=== PATIENT | female | born 1950 | race Caucasian/White ===

== ENCOUNTER 2017-06-15 15:08 | Emergency (ER) | payer MEDICARE, SELFPAY ==
[2017-06-15 15:10] VITALS: BP 163/83; PULSE 88; RESP 16; TEMP 36.4; O2SAT 93; BMI 24.1
--- NOTE | 2017-06-15 15:30 | CT_ITS ---
STUDY: CT BRAIN WITHOUT CONTRAST REASON FOR EXAM: Female, 67 years old. Fall. History of prior brain tumor. RADIATION DOSAGE (If Supplied By Facility): CTDIvol = ( 44.99 ) mGy, DLP = ( 779.24 ) mGycm TECHNIQUE: Transaxial CT imaging of the brain was performed without administration of intravenous contrast material. Individualized dose optimization techniques were used for this CT. COMPARISON: 05/26/2012. FINDINGS: There are stable post surgical changes from a prior midline occipital craniectomy. There is stable encephalomalacia posteromedially in the bilateral cerebellar hemispheres. There is a stable old lacunar infarct in the right internal capsule. There is no acute bleed or infarct. There are stable chronic ischemic and atrophic changes. Again noted is a ventriculostomy tube. The ventricles are normal in configuration. There is no hydrocephalus. The visualized paranasal sinuses are clear. The mastoid air cells are well aerated. There is no skull fracture. CT/Brain/Head without Contrast IMPRESSION: No acute intracranial abnormality. Stable postsurgical and chronic ischemic changes, as described above. Electronically Signed: Liam Dhaliwal, at 16:28 EDT Tel , Service support ,
--- NOTE | 2017-06-15 15:31 | CT_ITS ---
STUDY: CT CERVICAL SPINE WITHOUT CONTRAST REASON FOR EXAM: Female, 67 years old. Fall RADIATION DOSAGE (If Supplied By Facility): CTDIvol = ( 14.25 ) mGy, DLP = ( 321.09 ) mGycm TECHNIQUE: High resolution transaxial imaging was performed without contrast material. Sagittal and coronal images were reconstructed. Individualized dose optimization techniques were used for this CT. COMPARISON: 05/26/2012 FINDINGS: There is no evidence of fracture or dislocation in the cervical spine. The dens is intact. Alignment is normal. The vertebral body heights are well-maintained. There are stable degenerative changes. The visualized paraspinal soft tissues are within normal limits. CT/Spine Cervical without Contras IMPRESSION: No fracture or dislocation in the cervical spine. Stable degenerative changes. Electronically Signed: Liam Dhaliwal, at 16:35 EDT Tel , Service support ,
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
[2017-06-15] MEDS: Lidocaine/Epi/Tetracaine 50 ML 1 APPLIC TOPICAL (16:33)
[2017-06-15] MEDS: Diphth,Pertuss(Acell),Tet Vac 0.5 ML Vial IM (17:15)
[2017-06-15 17:21] VITALS: BP 156/68; PULSE 97; RESP 20
== END 2017-06-15 17:44 | disposition home or self-care (01) ==
PROVIDERS: Emergency Provider Emergency Medicine; Family Provider Family Medicine; PCP Family Medicine
DX: S01.112A Laceration without foreign body of left eyelid and periocular area, initial encounter (principal); S01.81XA Laceration without foreign body of other part of head, initial encounter; V19.3XXA Pedal cyclist (driver) (passenger) injured in unspecified nontraffic accident, initial encounter; Y93.55 Activity, bike riding; Y92.9 Unspecified place or not applicable; Y99.9 Unspecified external cause status; Z23 Encounter for immunization; M62.422 Contracture of muscle, left upper arm; M21.372 Foot drop, left foot; Z79.899 Other long term (current) drug therapy
CPT/HCPCS: 12013; 70450; 72125; 90715; 99285

== ENCOUNTER 2017-06-21 10:11 | Emergency (ER) | payer MEDICARE, SELFPAY ==
[2017-06-21 10:13] VITALS: BP 140/74; PULSE 74; RESP 18; TEMP 36.4; O2SAT 93; BMI 24.9
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
== END 2017-06-21 10:32 | disposition home or self-care (01) ==
PROVIDERS: Emergency Provider Emergency Medicine; Family Provider Family Medicine; PCP Family Medicine
DX: S01.112D Laceration without foreign body of left eyelid and periocular area, subsequent encounter (principal); W19.XXXD Unspecified fall, subsequent encounter; Z48.02 Encounter for removal of sutures; I10 Essential (primary) hypertension; Z86.73 Personal history of transient ischemic attack (TIA), and cerebral infarction without residual deficits; Z79.899 Other long term (current) drug therapy
CPT/HCPCS: 99283

== ENCOUNTER → 2017-09-05 10:54 | Outpatient (CLI) | payer MEDICARE, SELFPAY ==
--- NOTE | 2017-09-05 10:57 | BI_ITS ---
MAMMOGRAPHY - BILATERAL SCREENING REASON FOR EXAM: Female, 67 years old. Routine annual screening examination. PERTINENT HISTORY: Non-contributory. TECHNIQUE: Digital bilateral breast obey (3D mammographic acquisition) in the CC and MLO projections. 2-D mediolateral oblique (MLO) and craniocaudad (CC) views of both breasts were obtained. CAD: Full Field Digital Mammography with Computer Added Detection was performed. COMPARISON: Comparison is made with prior examination dated August 19, 2016. FINDINGS: Breast Composition: There are scattered areas of fibroglandular density. There are no dominant masses or suspicious calcifications. Stable small bilateral benign appearing axillary lymph nodes. A tissue clip marker is once again seen in the inferior medial aspect of the left breast. No other significant abnormalities are identified. There has been no significant change since the prior study. BI/SCREENING MAMM (CAD), BILAT IMPRESSION: Stable bilateral screening mammogram. Yearly follow-up mammogram recommended. (A) ASSESSMENT CATEGORY: BIRADS Category 2: Benign. A letter regarding these results will be sent to the patient by the facility within 30 days. Approximately 10% of breast cancers are not detected by mammography. A normal mammogram should not delay biopsy of a clinically suspicious abnormality. [id number] Electronically Signed: Blake Gilbert MD at 12:52 EDT Tel [phone], Service support ,
== END ==
PROVIDERS: Family Provider Family Medicine; PCP Family Medicine; Visit Provider Nurse Practitioner Women's Health
DX: Z12.31 Encounter for screening mammogram for malignant neoplasm of breast (principal)
CPT/HCPCS: 77063; 77067

== ENCOUNTER → 2018-09-14 10:54 | Outpatient (CLI) | payer MEDICARE, SELFPAY ==
[2018-09-14 10:18] VITALS: BMI 25.0
--- NOTE | 2018-09-14 10:58 | BI_ITS ---
MAMMOGRAPHY - BILATERAL SCREENING REASON FOR EXAM: Female, 68 years old. Routine annual screening examination. PERTINENT HISTORY: Non-contributory. TECHNIQUE: Digital bilateral breast reginaldo (3D mammographic acquisition) in the CC and MLO projections. 2-D mediolateral oblique (MLO) and craniocaudad (CC) views of both breasts were obtained. CAD: Full Field Digital Mammography with Computer Added Detection was performed. COMPARISON: Comparison is made with prior examination dated September 05, 2017. FINDINGS: Breast Composition: The breasts are almost entirely fatty. There are no dominant masses or suspicious calcifications. Stable benign-appearing bilateral axillary lymph nodes. A tissue clip marker is once again seen in the inferior medial aspect of the left breast. No other significant abnormalities are identified. There has been no significant change since the prior study. BI/SCREEN MAMM (CAD) W/REGINALDO BILAT IMPRESSION: Stable bilateral screening mammogram. Yearly follow-up mammogram recommended. (A) ASSESSMENT CATEGORY: BIRADS Category 2: Benign. A letter regarding these results will be sent to the patient by the facility within 30 days. Approximately 10% of breast cancers are not detected by mammography. A normal mammogram should not delay biopsy of a clinically suspicious abnormality. [id number] Electronically Signed: Blake Gilbert, at 13:41 EDT , Service support ,
== END ==
PROVIDERS: Family Provider Family Medicine; PCP Family Medicine; Referring Provider Nurse Practitioner Women's Health; Visit Provider Nurse Practitioner Women's Health
DX: Z12.31 Encounter for screening mammogram for malignant neoplasm of breast (principal)
CPT/HCPCS: 77063; 77067

== ENCOUNTER → 2019-09-20 10:10 | Outpatient (CLI) | payer MEDICARE, SELFPAY ==
[2018-09-14 10:18] VITALS: BMI 25.0
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
== END ==
PROVIDERS: PCP Family Medicine; Referring Provider Nurse Practitioner Women's Health; Visit Provider Nurse Practitioner Women's Health
DX: Z12.31 Encounter for screening mammogram for malignant neoplasm of breast (principal)
CPT/HCPCS: 77063; 77067

== ENCOUNTER 2020-04-23 10:32 | Outpatient (RCR) | payer MEDICARE, SELFPAY ==
[2019-09-20 11:12] VITALS: BMI 25.0
== END 2020-04-23 23:59 ==
LOC: IMMUN 10:32
PROVIDERS: PCP Family Medicine; Visit Provider Family Medicine
DX: Z23 Encounter for immunization (principal)
CPT/HCPCS: 0011A; 0012A; 91301

== ENCOUNTER → 2020-09-23 08:21 | Outpatient (CLI) | payer MEDICARE, SELFPAY ==
[2019-09-20 11:12] VITALS: BMI 25.0
--- NOTE | 2020-09-23 08:23 | BI_ITS ---
MAMMOGRAPHY - BILATERAL SCREENING REASON FOR EXAM: Female, 70 years old. Routine annual screening examination. PERTINENT HISTORY: Sister with breast cancer. TECHNIQUE: Digital bilateral breast reginaldo (3D mammographic acquisition) in the CC and MLO projections. 2-D mediolateral oblique (MLO) and craniocaudad (CC) views of both breasts were obtained. CAD: Full Field Digital Mammography with Computer Added Detection was performed. COMPARISON: Comparison is made with prior study dated 09/20/2019 and 09/14/2018. FINDINGS: Breast Composition: The breasts are almost entirely fatty. There are no dominant masses or suspicious calcifications. Stable small benign-appearing bilateral axillary lymph nodes. No other significant abnormalities are identified. There has been no significant change since the prior study. BI/SCRN MAMM (CAD)W/REGINALDO BILAT IMPRESSION: Stable bilateral screening mammogram. Yearly follow-up mammogram recommended. (A) ASSESSMENT CATEGORY: BIRADS Category 2: Benign. A letter regarding these results will be sent to the patient by the facility within 30 days. Approximately 10% of breast cancers are not detected by mammography. A normal mammogram should not delay biopsy of a clinically suspicious abnormality. [id number] Electronically Signed: Blake Gilbert MD at 9:26 EDT , Service support ,
== END ==
PROVIDERS: PCP Family Medicine; Referring Provider Nurse Practitioner Women's Health; Visit Provider Nurse Practitioner Women's Health
DX: Z12.31 Encounter for screening mammogram for malignant neoplasm of breast (principal)
CPT/HCPCS: 77063; 77067

== ENCOUNTER → 2021-12-02 | Outpatient (CLI) | payer MEDICARE, SELFPAY ==
--- NOTE | 2021-12-02 08:32 | BI_ITS ---
MAMMOGRAPHY - BILATERAL SCREENING REASON FOR EXAM: Female, 71 years old. Routine annual screening examination. PERTINENT HISTORY: Sister with breast cancer. TECHNIQUE: Digital bilateral breast reginaldo (3D mammographic acquisition) in the CC and MLO projections. 2-D mediolateral oblique (MLO) and craniocaudad (CC) views of both breasts were obtained. CAD: Full Field Digital Mammography with Computer Added Detection was performed. COMPARISON: Comparison is made with prior study dated 09/23/2020 and 09/20/2019. FINDINGS: Breast Composition: The breasts are almost entirely fatty. There are no dominant masses or suspicious calcifications. No other significant abnormalities are identified. There has been no significant change since the prior study. BI/SCRN MAMM (CAD)W/REGINALDO BILAT IMPRESSION: Stable bilateral screening mammogram. Yearly follow-up mammogram recommended. (A) ASSESSMENT CATEGORY: BIRADS Category 1: Negative. A letter regarding these results will be sent to the patient by the facility within 30 days. Approximately 10% of breast cancers are not detected by mammography. A normal mammogram should not delay biopsy of a clinically suspicious abnormality. [id number] Electronically Signed: Blake Gilbert MD at 10:12 EDT ,
== END | disposition home or self-care (01) ==
LOC: OPBI 08:30
PROVIDERS: PCP Family Medicine; Visit Provider Obstetrics & Gynecology
DX: Z12.31 Encounter for screening mammogram for malignant neoplasm of breast (principal); Z80.3 Family history of malignant neoplasm of breast
CPT/HCPCS: 77063; 77067

== ENCOUNTER → 2022-12-03 | Outpatient (CLI) | payer MEDICARE, SELFPAY ==
--- NOTE | 2022-12-03 10:11 | BI_ITS ---
MAMMOGRAPHY - BILATERAL SCREENING REASON FOR EXAM: Female, 72 years old. Routine annual screening examination. PERTINENT HISTORY: Sister with breast cancer. TECHNIQUE: Digital bilateral breast reginaldo (3D mammographic acquisition) in the CC and MLO projections. 2-D mediolateral oblique (MLO) and craniocaudad (CC) views of both breasts were obtained. CAD: Full Field Digital Mammography with Computer Added Detection was performed. COMPARISON: Comparison is made with prior study dated December 02, 2021 and September 23, 2020. FINDINGS: Breast Composition: The breasts are almost entirely fatty. There are no dominant masses or suspicious calcifications. No other significant abnormalities are identified. There has been no significant change since the prior study. BI/SCRN MAMM (CAD)W/REGINALDO BILAT IMPRESSION: Stable bilateral screening mammogram. Yearly follow-up mammogram recommended. (A) ASSESSMENT CATEGORY: BIRADS Category 1: Negative. A letter regarding these results will be sent to the patient by the facility within 30 days. Approximately 10% of breast cancers are not detected by mammography. A normal mammogram should not delay biopsy of a clinically suspicious abnormality. [id number] Electronically Signed: Blake Gilbert MD at 11:28 EDT ,
== END | disposition home or self-care (01) ==
PROVIDERS: Referring Provider Nurse Practitioner Women's Health; Visit Provider Nurse Practitioner Women's Health
DX: Z12.31 Encounter for screening mammogram for malignant neoplasm of breast (principal); Z80.3 Family history of malignant neoplasm of breast
CPT/HCPCS: 77063; 77067

== ENCOUNTER → 2023-01-19 | Outpatient (CLI) | payer MEDICARE, SELFPAY ==
--- NOTE | 2023-01-19 10:55 | VDLE_ITS ---
Reason For Study: Left leg pain RIGHT LEFT CFV is compressible, spontaneous, phasic, GSV is normal. competent and demonstrates normal CFV is compressible, spontaneous, phasic, augmentation. competent, and demonstrates normal Procedure augmentation. This is a venous duplex using B-mode, color FV is compressible, spontaneous, phasic, flow and spectral Doppler. competent and demonstrates normal Exam performed in department. augmentation. A preliminary report was called and/or faxed POP V is compressible, spontaneous, phasic, to Dr. Tamez. competent and demonstrates normal augmentation. T/P Trunk is compressible. PTV is compressible. LT PerV is compressible. VL/Venous Duplex US, Unilateral Interpretation Summary Deep veins of the left lower extremity are patent and compressible segmentally. There is no evidence of left lower extremity deep vein thrombosis. Valvular competence appears intac t within the proximal deep venous system on the left . The left great saphenous vein appears patent a nd compressible segmentally. The right common femoral vein is patent and compressible . Ordering Physician: Carlos Tamez Referring Physician: Carlos Tamez Performed By: Yue Abraham RVT
== END | disposition home or self-care (01) ==
LOC: CVS 10:51
PROVIDERS: PCP Family Medicine; Referring Provider Family Medicine; Visit Provider Family Medicine
DX: M79.662 Pain in left lower leg (principal)
CPT/HCPCS: 93971

== ENCOUNTER → 2023-02-01 | Outpatient (CLI) | payer MEDICARE, SELFPAY ==
--- NOTE | 2023-02-01 12:59 | ART_ITS ---
Reason For Study: Pain and swelling of LLE Procedure A bilateral lower extremity continuous wave Doppler with analog waveform analysis and ankle brachial indexes. Left Segmental Pressures Left brachial= 143mmHg. Left posterior tibial artery = 162mmHg. Left dorsalis pedis artery = 147mmHg. Left digit = 128 mmHg. The left dorsalis pedis waveforms are triphasic. The left posterior tibial artery waveforms are triphasic. Right Segmental Pressures Right brachial= 137mmHg. Right posterior tibial artery = 174mmHg. Right dorsalis pedis artery = 165mmHg. Right digit = 128 mmHg. The right dorsalis pedis waveforms are triphasic. The right posterior tibial artery waveforms are triphasic. Indices The right ankle brachial index by the dorsalis pedis is 1.15. The right ankle brachial index by the posterior tibial artery is 1.22. The right digital-brachial index is 0.90. The left ankle brachial index by the dorsalis pedis is 1.03. The left ankle brachial index by the posterior tibial artery is 1.13. The left digital-brachial index is 0.90. VL/Ankle Brachial Index Interpretation Summary Right GURWINDER 1.22, normal. TBI and Doppler/PVR waveforms of the right leg normal a t rest. Left GURWINDER 1.13, normal. TBI and Doppler/PVR waveforms of the left leg normal at rest. Ordering Physician: Carlos Tamez Referring Physician: Carlos Tamez Performed By: Yue Abraham RVT
== END | disposition home or self-care (01) ==
LOC: CVS 12:57
PROVIDERS: PCP Family Medicine; Referring Provider Family Medicine; Visit Provider Family Medicine
DX: M79.662 Pain in left lower leg (principal); I75.022 Atheroembolism of left lower extremity; M79.89 Other specified soft tissue disorders
CPT/HCPCS: 93922

== ENCOUNTER → 2023-11-24 | Outpatient (CLI) | payer MEDICARE, SELFPAY ==
[2023-11-24 18:04] LABS: Anion Gap 6 (5-15); BUN 20 mg/dL (7-18); BUN/Creat Ratio 17.4 RATIO (10-20); Chloride 104 mmol/L (98-107); Creatinine, Serum 1.15 mg/dL (0.55-1.02); EST Glomerular Filtration Rate 49 mL/min (>60); Est Glom Filt Rate - Afr Amer 59 mL/min (>60); Glucose 136 mg/dL (74-106); Potassium 3.6 mmol/L (3.5-5.1); Sodium Level 138 mmol/L (136-145)
== END | disposition home or self-care (01) ==
PROVIDERS: PCP Family Medicine; Referring Provider Family Medicine; Visit Provider Family Medicine
DX: E87.6 Hypokalemia (principal)
CPT/HCPCS: 36415; 80048

== ENCOUNTER → 2023-12-12 | Outpatient (CLI) | payer MEDICARE, SELFPAY ==
--- NOTE | 2023-12-12 09:41 | BI_ITS ---
MAMMOGRAPHY - BILATERAL SCREENING 3-D TOMOSYNTHESIS REASON FOR EXAM: Female, 73 years old. breast cancer screening PERTINENT HISTORY: No significant family history. TECHNIQUE: 2-D mammograms and 3-D Tomosynthesis of the breast (s) were performed. CAD was performed. COMPARISON: 12/03/2022 FINDINGS: The breast composition is composed of scattered fibroglandular density. Scattered benign calcifications are seen. No dense spiculated masses or suspicious microcalcifications are identified. No architectural distortion is identified. There is no skin thickening or retraction. There has been no significant change since the prior study. BI/SCRN MAMM (CAD)W/REGINALDO BILAT IMPRESSION: No mammographic signs of malignancy. Routine yearly mammograms recommended. ASSESSMENT CATEGORY: BIRADS Category 1: Negative. A letter regarding these results will be sent to the patient by the facility within 30 days. FOLLOW UP RECOMMENDATION: Yearly follow up mammogram recommended. (A) Approximately 10% of breast cancers are not detected by mammography. A normal mammogram should not delay biopsy of a clinically suspicious abnormality. Electronically Signed: Inder Cade MD at 14:11 EDT ,
== END | disposition home or self-care (01) ==
LOC: OPBI 09:41
PROVIDERS: PCP Family Medicine; Referring Provider Nurse Practitioner Women's Health; Visit Provider Nurse Practitioner Women's Health
DX: Z12.31 Encounter for screening mammogram for malignant neoplasm of breast (principal)
CPT/HCPCS: 77063; 77067

== ENCOUNTER → 2024-01-06 | Outpatient (CLI) | payer MEDICARE, SELFPAY | END | disposition home or self-care (01) | LOC: RAD 09:55 | PROVIDERS: PCP Family Medicine; Referring Provider Internal Medicine Gastroenterology; Visit Provider Internal Medicine Gastroenterology | DX: R13.10 Dysphagia, unspecified (principal) | CPT/HCPCS: 74221 ==

== ENCOUNTER 2024-03-07 14:30 | Outpatient (RCR) | payer MEDICARE, SELFPAY ==
--- NOTE | 2023-12-01 08:59 | HP.SP.EV_ITS ---
Visit History Visit Info Date of Eval: 11/30/23 Visit: 1 Building Serviceman: MARIA LUISA History Attending Doctor: Referring Doctor: Reason for Referral: DYSPHAGIA RX HERE Medical Diagnosis: Dysphagia Previous speech therapy: Yes Results: Patient and reported therapy after brain tumor removal and shunt placement. Reported on thickened liquids but after therapy dysphagia resolved. 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 Medications related to this diagnosis: Hydrochlorothiazide, simvastatin, calcium, mutivitamin, muscle relaxer Smoking Status: Never smoker Diagnosis Diagnosis: Dysphagia Pain Is pain an issue with your current prescribed condition?: No Personal Preferred language: [place]une[place] Patient Allergies Allergies Allergies: Allergies aspirin Allergy (Verified 11/30/23 11:22) Nausea iodine Allergy (Verified 11/30/23 11:22) Unknown iopamidol Allergy (Verified 11/30/23 11:22) Unknown plasma protein fraction Allergy (Verified 11/30/23 11:22) Itching salicylates Allergy (Verified 11/30/23 11:22) Unknown Subjective Dysphagia Symptoms Reported Symptoms/Problems with: Coughing, Difficulty Swallowing Solids and Food gets stuck Current Diet Solids Current Diet: Regular Other: cuts meat into small bites. Current Diet Liquids Current Liquids: Thin Comments Patient report: -: Patient reported that she has difficulty with meats as they stick in her throat and she coughs. At times she has to cough it up and other times coughs and swallows. reported that carbonated drinks and ice cream make her cough. Objective Dysphagia Administered by Administered by: Self Thin Liquids Administred via: Cup Oral Transit: WNL Bolus clearance: fully cleared Gagging: No Cough: none observed/unable to assess Patient Report: She reported no complaints with thin liquid. Average sip size noted from bottle of water. Comments: Noted natural double swallow. Regular Oral Preparation: WNL Bolus clearance: significant clearance/minimal residue Cough: throat clear Pharyngeal phase: suspect pharyngeal deficits Patient Report: She reported pocketing on left side. She used a liquid wash to clear. Comments: Patient given trail mix and she took approximately 5-6 pieces one after another. Mastication appeared to be reduced. She had throat clearing x1 and coughing x1. Unable to determine if it was due to food or liquid. Previously on thin liquid she did not cough or throat clear. Swallowing Impairment Contributing Factors to Swallowing Impairment: Reduced Oral Strength/Coordination/Sensation Impact Impact on Safety & Functioning: Risk for Aspiration and Risk for Inadequate N utrition/Hydration Recommendations Swallowing Treatment: Yes Diet Texture Recommendations Solids: Regular (Level 7) Liquids: Thin (Level 0) Safety Saftey Precautions/Swallowing Recommendations (Check all that Apply): Reduce Distractions and Small Sips & Bites when Eating Results Swallowing Within Normal Limits: No Swallowing Diagnosis: Dysphagia Unspecified (R13.10) Subjective Oral Motor Subjective Dentures ill fitting: No Objective Oral Motor Oral Status Dentition: Missing Teeth and Lower Dentures Additional: Lower plate and one upper missing molar. Labial Impairment: WNL Closure: WNL Pucker: WNL Retraction: WNL Involuntary Movement noted: No Lingual Impairment: WNL Protrusion: WFL Retraction: WFL Lateralization: Mild Involuntary Movement: No Lingual Comments Comments: Patient had difficulty with lingual tip elevation. Jaw Impairment: WNL Involuntary Movement: No Respiratory Status Respiratory Status: Room Air Reference: Neuro-QoL instrument Radiation Oncology Patient Other Other Voice: -: Patient/ reported that her voice comes and goes as well as at times gets squeaky and intermittent has a high pitch cough. Educated patient and on consulting and ENT before voice evaluation to determine any anatomical causes. Plan Plan Plan: FEES recommended to objectively assess swallow function and deficits with dysphagia therapy recommended. Recommendations Treatment Warranted: Yes Treatment Warranted: Dysphagia Progress Prognosis: Good Frequency Frequency: 1x/Week Duration: 6 Weeks Visits in this POC: 6 Goals that are Established Determination:: Goals will be added/modified as deemed necessary and appropriate. Therapy will be discontinued when results of re-evaluation indicate therapy is no longer needed or lack of progress has been documented. Goal #1-5 Goal #1: Patient will participate in Fiberoptic Endoscopic Evaluation of Swallow (FEES) to objectively assess Pt's oropharyngeal swallow function to determine the least restrictive means of nutrition and accurately recommend a home exercise program along with compensatory strategies. Goal #2: Patient will tolerate the least restrictive means of nutrition to facilitate adequate hydration/nutrition with optimum safety and efficiency of swallowing function during P.O. intake without overt signs and symptoms of aspiration. Goal #3: Goals to be added after FEES as appropriate. Education Patient has Indicated that the Following Identified Educational Needs: None The Patient has indicated that they have no educational or learning abilities that may effect their care.: Yes Patient Instruction Patient Education: Diagnosis, Treatment Plan and Diet Level Person Taught: Patient and Significant Other Response to teaching: Verbalize Understanding
--- NOTE | 2023-12-21 14:10 | SP.FEES_ITS ---
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 She had swallowing therapy after surgery but not since then. TX/DX History:: Yes Subjective: Subjective:: Patient and her have reported that she is coughing while eating. Patient reported that food gets stuck on left side (pocketing on left in oral cavity). Current Diet: Drinks/Liquids:: Thin Foods:: Regular Medication Administration:: orally Respiratory Status Observation:: Room Air. Vocal Quality: Observations:: WFL Cognition: Observations:: WFL Position During FEES: Position During FEES:: Upright Location: In Chair Fiberoptic Endoscope: Size: 3.4 mm Nare Used:: Left Anatomy: Velum Movement: Yes Nasopharynx Tissue Description: [place] and Moist Secretions: Description:: Thin and Clear Phonation: Arytenoid Adduction: WNL Vocal Fold Adduction: WNL Penetration-Aspiration Scale Penetration-Aspiration Scale Thin Liquids by Teaspoon Food/Drink Provided:: Milk given as a mixed consistency with mini wheaties cereal bite. Swallow Onset Location:: Pyriform Sinuses and Laryngeal Vestibule Comments:: 2 Trials provided. PAS Score: PAS Score *7 Visual Analysis of Swallowing Efficiency and Safety (VASES) after the swallow: Hypopharynx VASES Comments:: 25% residue that cleared with second swallow. Additional Comments:: With the mixed consistency bite, she had a small amount of milk go over the epiglottis into the laryngeal vestibule before the swallow on first trial. Can not rule out aspiration at that time. She had significant premature spillage to pyriform sinuses on all trials. Second trial demonstrated thin liquid below the vocal cords. Her )attempt to clear was not successful (reflexive cough while chewing) but with cue to cough after the bite was swallowed it cleared. Thin Liquids by Single Cup Food/Drink Provided:: Water Swallow Onset Location:: Val[place]cula PAS Score: PAS Score *1 Comments:: No residue noted. Additional Comments:: Premature spillage noted on liquids. Thin Liquids by Single Straw Food/Drink Provided:: Water, Milk Swallow Onset Location:: Pyriform Sinuses PAS Score: PAS Score *1 Visual Analysis of Swallowing Efficiency and Safety (VASES) after the swallow: Oropharynx Comments:: 10% residue in vallecula. Additional Comments:: Patient demonstrated premature spillage to pyriform sinuses but no penetration/ aspiration noted. Puree Textures Food/Drink Provided:: Applesauce Swallow Onset Location:: [place]cula PAS Score: PAS Score *1 Visual Analysis of Swallowing Efficiency and Safety (VASES) after the swallow: Oropharynx Comments:: 10% which moved from oral cavity after the swallow with saliva into vallecula and cleared with natural double swallow. Additional Comments:: Patient independently had second swallow. Easy to Chew Textures Food/Drink Provided:: Banana Swallow Onset Location:: Vallecula and Epiglottis Comments:: 1st bite triggered in the vallecula and 2nd at the ridge of epiglottis PAS Score: PAS Score *1 Visual Analysis of Swallowing Efficiency and Safety (VASES) after the swallow: Oropharynx Comments:: Minimal residue 10% in vallecula. Additional Comments:: Natural double swallow by patient. Regular Textures Food/Drink Provided:: Plain hamburger and hamburger with ketchup, mini wheaties in milk. Swallow Onset Location:: Vallecula PAS Score: PAS Score *1 Visual Analysis of Swallowing Efficiency and Safety (VASES) after the swallow: Hypopharynx Comments:: Approximately 15-20% residue on posterior pharyngeal wall. lateral glossoepiglottic folds and vallecula. 5% noted at post cricoid region Patient needed a double swallow to clear which she naturally completed. After second swallow patient cleared approximately 95% of residue. Additional Comments:: The hamburger bites took over 2 minutes to masticate each. She reported she needed a lingual sweep as she had pocketing on her left. She had piecemeal deglutition where she would initiate her swallow in the vallecula after transferring the bolus beyond the base of tongue. She exhibited a natural double swallow but noted that second swallow was delayed at times. Diagnosis/Impressions Diagnosis: Oropharyngeal Dysphagia Impressions: Oral phase had reduced mastication and reduced bolus formation along with pocketing. Pharyngeal phase of the swallow is primarily marked by weak pharyngeal contraction evidenced by a continued visualization of the tissues (i.e., pink out) versus total occlusion of visual field (i.e., white out) with noted pharyngeal residue. Swallowing Impairment: Mastication Inefficiency, Premature Posterior Loss, Decreased Pharyngeal Contraction and Decreased Airway Closure Swallowing Impairment Comments: Pt had oral dysphagia due to decreased mastication, reduced oral control, left pocketing, piecemeal deglutition and premature spillage. Pt's pharyngeal phase of the swallow is primarily marked by weak pharyngeal contraction evidenced by a continued visualization of the tissues (i.e., pink out) versus total occlusion of visual field (i.e., white out). Suspect base of tongue function and pharyngeal stripping wave to be mild to moderate d/t pharyngeal residue. Recommendations Diet: Soft and Bite Sized Textures, Minced and Moist Textures and Thin Liquids Comments: Soft and bite sized recommended with meats and dry foods being minced with moisture added. Compensatory Strategies: Small Bites, Small Sips, Multiple Swallows and Remain sitting upright for 30 minutes after PO intake Recommend Repeat Instrumental Swallow Assessment: TBD Need for Skilled Speech Therapy Services: Yes Education Completed: 4. Family/caregivers understand evaluation & agree w/ goals & tx plan. Frequency Frequency: 1x/Week Duration: 6 Weeks Visits in this POC: 6 Goals that are Established Determination:: Goals will be added/modified as deemed necessary and appropriate. Therapy will be discontinued when results of re-evaluation indicate therapy is no longer needed or lack of progress has been documented. Goal #1: Patient will participate in Fiberoptic Endoscopic Evaluation of Swallow (FEES) to objectively assess Pt's oropharyngeal swallow function to determine the least restrictive means of nutrition and accurately recommend a home exercise program along with compensatory strategies. Goal #2: Patient will tolerate the least restrictive means of nutrition to facilitate adequate hydration/nutrition with optimum safety and efficiency of swallowing function during P.O. intake without overt signs and symptoms of aspiration. Goal #3: Goals to be added after FEES as appropriate.
== END 2024-03-07 19:00 | disposition home or self-care (01) ==
LOC: SP 14:30
PROVIDERS: PCP Family Medicine; Referring Provider Family Medicine; Visit Provider Family Medicine
DX: R13.10 Dysphagia, unspecified (principal)
CPT/HCPCS: 92526; 92610; 92612

== ENCOUNTER → 2024-05-23 | Outpatient (CLI) | payer MEDICARE, SELFPAY ==
[2024-05-23 12:49] LABS: Absolute Lymphocyte Count 1.19 X10^3/uL (0.83-4.51); Absolute Neutrophil Count 3.8 X10^3/uL (2.0-7.7); Basophil# 0.07 X10^3/uL; Basophil% 1.2 % (0-1); Eosinophil# 0.11 X10^3/uL; Eosinophils% 1.9 % (0-5); Hematocrit 46.4 % (37-47); Hemoglobin 15.6 g/dL (12.0-15.0); Lymphocyte # 1.19 X10^3/ul (0.83-4.51); Mean Corp Hgb Conc 33.6 g/dL (32-36); Mean Corpuscular Hgb 30.9 pg (27.0-32.0); Mean Corpuscular Volume 91.9 fL (81-99); Mean Platelet Vol. 10.8 fl (6.2-12.0); Monocyte# 0.49 X10^3/uL; Monocyte% 8.6 % (0-10); NRBC Flagged by Analyzer 0 % (0-5); Neutrophil # 3.81 X10^3/uL (2.7-7.7); Neutrophil % 67.1 % (47-70); Platelet Count 233 K/mm3 (150-450); RBC Distribution Width CV 13.2 % (11.6-14.6); RBC Distribution Width SD 44.8 fl (35.1-43.9); Red Blood Count 5.05 M/mm3 (4.2-5.4); White Blood Count 5.7 K/mm3 (4.4-11.0)
[2024-05-23 13:13] LABS: ALB/GLOB Ratio 1.1 RATIO (0.9-2.4); AST(SGOT) 25 U/L (<=31); Alanine Aminotransfer ALT/SGPT 22 U/L (<=34); Albumin, Serum 4.1 g/dL (3.4-4.8); Alkaline Phosphatase 90 U/L (35-104); Anion Gap 12 (5-15); BUN 20 mg/dL (4-19); BUN/Creat Ratio 18.2 RATIO (10-20); Carbon Dioxide 24.3 mmol/L (21.0-32.0); Chloride 102 mmol/L (98-108); Cholesterol 137 mg/dL (<=200); Creatinine, Serum 1.08 mg/dL (0.70-1.20); EST Glomerular Filtration Rate 53 (>60); Globulin 3.7 g/dL (2.2-4.2); Glucose 92 mg/dL (70-99); High Density Lipoprotein 53 mg/dL; Low Density Lipoprotein Calc. 70 mg/dL; Potassium 3.6 mmol/L (3.3-5.1); Protein, Total 7.8 g/dL (5.9-8.4); Sodium Level 138 mmol/L (133-145); Total Bilirubin 0.84 mg/dL (0.00-1.30); Triglycerides 72 mg/dL; Very Low Density Lipoprotein 14 mg/dL (5-40); cholesterol:hdl ratio screen 2.59
== END | disposition home or self-care (01) ==
LOC: MFPLAB 10:08
PROVIDERS: PCP Family Medicine; Referring Provider Family Medicine; Visit Provider Family Medicine
DX: I12.9 Hypertensive chronic kidney disease with stage 1 through stage 4 chronic kidney disease, or unspecified chronic kidney disease (principal); N18.30 Chronic kidney disease, stage 3 unspecified; E78.5 Hyperlipidemia, unspecified
CPT/HCPCS: 36415; 80053; 80061; 85025

== ENCOUNTER → 2024-10-25 | Outpatient (CLI) | payer MEDICARE, SELFPAY ==
--- NOTE | 2024-10-25 09:54 | CDU_ITS ---
Reason For Study Reason For Study: Carotid Bruit Rt. Velocities/BP Lt. Velocities/BP Prox CCA 96.1/12.1 cm/sec. Prox CCA 87.9/16.7 cm/sec. Mid CCA 112.5/12.1 cm/sec. Mid CCA 82.1/19.5 cm/sec. Dist CCA 85.5/15.5 cm/sec. Dist CCA 76.0/17.1 cm/sec. Prox ICA 87.9/24.1 cm/sec. Prox ICA 81.0/19.3 cm/sec. Mid ICA 86.3/27.0 cm/sec. Mid ICA 72.2/17.6 cm/sec. Dist ICA 52.9/17.3 cm/sec. Dist ICA 94.2/24.8 cm/sec. Rt. ICA/CCA = 0.8. Lt. ICA/CCA = 1.1. Prox ECA 38.9/7.5 cm/sec. Prox ECA 62.9/8.1 cm/sec. Rt. Vert. 53.5/11.0 cm/sec. Lt. Vert. 36.7/8.3 cm/sec. Right Extracranial There is intimal thickening but no significant atherosclerotic plaque noted in the right common carotid artery. The right common carotid artery is tortuous. There is intimal thickening but no significant atherosclerotic plaque noted in the right internal carotid artery. The right internal carotid artery is very tortuous. The distal right internal carotid artery is not well visualized. The right external carotid artery is not well visualized. Antegrade flow is noted in the right vertebral artery. Left Extracranial There is homogeneous, smooth atherosclerotic plaque noted in the left common carotid artery. There is intimal thickening but no significant atherosclerotic plaque noted in the left internal carotid artery. The distal left internal carotid artery is not well visualized. There is intimal thickening but no significant atherosclerotic plaque noted in the left external carotid artery. Antegrade flow is noted in the left vertebral artery. Procedure Carotid Duplex 10455. This is a Carotid Duplex examination using B-mode, color flow and specral Doppler. The exam was diagnostic. The study was technically difficult. Exam performed in department. VL/Carotid Duplex Ultrasound Interpretation Summary No significant atherosclerotic plaque or stenosis noted in the internal carotid arteries bilaterally. Flow within the vertebral arteries is antegrade bilaterally. Ordering Physician: Carlos Tamez Referring Physician: Carlos Tamez Performed By: Gamal Lira RVT
== END | disposition home or self-care (01) ==
PROVIDERS: PCP Family Medicine; Referring Provider Family Medicine; Visit Provider Family Medicine
DX: R09.89 Other specified symptoms and signs involving the circulatory and respiratory systems (principal)
CPT/HCPCS: 93880

== ENCOUNTER → 2024-12-12 | Outpatient (CLI) | payer MEDICARE, SELFPAY ==
--- NOTE | 2024-12-12 12:30 | BI_ITS ---
EXAM: SCRN MAMM (CAD)W/REGINALDO BILAT DATE: 12/12/2024 CLINICAL HISTORY: F, Age 74 y/o , SCREEN FOR BREAST CANCER No family history. TECHNIQUE: Procedure Code: [id number] Modality: MG Procedure: SCRN MAMM (CAD)W/REGINALDO BILAT COMPARISON: Prior exam(s) dated December 12, 2023.. FINDINGS: TISSUE DENSITY: The breasts are almost entirely fatty. Bilateral Breast Mammographic Findings: No significant masses, calcifications or other abnormalities are identified. Stable small benign-appearing bilateral axillary lymph nodes. No suspicious masses, areas of developing architectural distortion, or suspicious calcifications. There has been no significant interval change. BI/SCRN MAMM (CAD)W/REGINALDO BILAT IMPRESSION: Stable bilateral screening mammogram. OVERALL FINAL ASSESSMENT BI-RADS 2: BENIGN RECOMMENDATION: Routine annual follow-up in 1 Year Additional Recommendation none A letter with findings and recommendations will be mailed to the patient. Reading Location: [place] [id number]
== END | disposition home or self-care (01) ==
LOC: OPBI 12:19
PROVIDERS: PCP Family Medicine; Referring Provider Nurse Practitioner Women's Health; Visit Provider Nurse Practitioner Women's Health
DX: Z12.31 Encounter for screening mammogram for malignant neoplasm of breast (principal)
CPT/HCPCS: 77063; 77067